=== PATIENT | female | born 1945 | race Native Hawaiian/Other Pacific Islander ===

== ENCOUNTER 2018-09-21 10:25 | Emergency (ER) | payer OTHER ==
[~2018-09-21] VITALS: Ht 160 cm; Wt 49.9 kg
[~2018-09-21 10:25] MED LIST: ACETAMINOPHEN650 M5 PO; AMARYL4 MG PO; ATENOLOL 100MG100 M2 PO; ATIVAN0.5 MG PO; BACTRIM DS TAB1 EACH PO; CARAFATE1 GM/10 ML; CENTRUM SILVER1 EACH PO; CHOLESTID; COUMADIN 4 MG TA4 M1 PO; COZAAR 50 MG TA50 M1 PO; COZAAR100 MG PO; ENDOCET 5-3251 EACH PO; FELODIPINE ER10 MG PO; FENOFIBRATE200 MG PO; FISH OIL300 MG PO; FLEXERIL PO; GLUCOPHAGE1000 MG PO; GLUMETZA1000 PO; LISINOPRIL20 MG PO; LO-DOSE ASPIRIN81 M1 PO; MECLIZINE HCL25 M1 PO; NORCO 5-325 TA1 EACH PO; OMEPRAZOLE40 MG PO; VITAMIN B12-FO1 EAC1 PO
[2018-09-21 12:24] VITALS: BP 135/56
== END 2018-09-21 12:24 | disposition home or self-care (01) ==
LOC: ER 10:25
DX: S60.222A Contusion of left hand, initial encounter (principal); I10 Essential (primary) hypertension; E11.9 Type 2 diabetes mellitus without complications; W23.0XXA Caught, crushed, jammed, or pinched between moving objects, initial encounter; Y93.89 Activity, other specified; Y92.89 Other specified places as the place of occurrence of the external cause; Y99.8 Other external cause status